=== PATIENT | female | born 1960 | race Caucasian/White ===

== ENCOUNTER 2018-05-28 20:52 | Inpatient (IN) | payer OTHER, MEDICARE ==
[~2018-05-28] VITALS: Ht 160 cm; Wt 132.0 kg
[~2018-05-28 20:52] MED LIST: ADVAIR 250-501 EACH; ASPIRIN81 M2 PO; BACTROBAN22 GM TP; BP MED PO; CARAFATE 1 GM TA1 G1 PO; DOXYCYCLINE 10100 M1 PO; DOXYCYCLINE 10100 MG PO; DUONEB 2.5-0.5 M3 ML INH; ELIQUIS5 MG PO; FLECAINIDE ACET50 M2 PO; HIBICLENS120 ML TP; LEVAQUIN 750 M750 MG; NORCO 7.5-3251 EACH; OMEPRAZOLE 20 M20 MG PO; PREDNISONE 10 M10 MG PO; PREDNISONE 20 M20 M1 PO; PROAIR HFA8.5 GM; TOPROL XL25 MG PO; ZOLOFT100 MG PO; ZPAK PO
[2018-05-28 20:57] VITALS: BP 126/37
[2018-05-28] MEDS ORDERED: XARELTO20 MG PO (21:17)
[2018-05-28] MEDS ORDERED: FOSAMAX 70 MG T70 MG PO (21:19)
[2018-05-28] MEDS ORDERED: IRON325 PO (21:20)
[2018-05-28] MEDS ORDERED: ALDACTONE50 MG PO (21:20)
[2018-05-28] MEDS ORDERED: POTASSIUM20 PO (21:20)
[2018-05-28] MEDS ORDERED: LIPITOR 20 MG T20 M1 PO (21:20)
[2018-05-28] MEDS ORDERED: INCRUSE ELLI62.5 MCG INH (21:21)
[2018-05-28] MEDS ORDERED: TRAMADOL 50 MG50 MG PO (21:21)
[2018-05-28] MEDS ORDERED: XOPENEX HFA15 GM INH (21:22)
[2018-05-28] MEDS ORDERED: VITAMIN D250000 UNIT PO (21:22)
[2018-05-28] MEDS ORDERED: ZEMAIRA PO (21:23)
[2018-05-28] MEDS ORDERED: ZANTAC 150MG T150 MG PO (21:23)
[2018-05-28 21:36] LABS: HEMATOCRIT 27.9 % (37.0-47.0); HEMOGLOBIN 9.4 gm/dL (12.0-15.0); MCH 28.7 pg (26.0-34.0); MCHC 33.7 g/dL (28.0-37.0); MCV 85.2 fL (80.0-100.0); MPV 7.4 fl. (7.2-11.1); NUCLEATED RBCS 0 /100WBC; RBC 3.28 mil/uL (4.20-5.00); RDW-CV 16.8 % (10.5-14.5); WBC 4.9 thou/uL (4.0-11.0)
[2018-05-28 21:43] LABS: ANION GAP 3 mmol/L (7-16); BUN 12 mg/dL (7-18); CALCIUM 8.1 mg/dL (8.5-10.1); CHLORIDE 100 mmol/L (98-107); CO2 32 mmol/L (21-32); CREATININE 0.7 mg/dL (0.6-1.3); GLUCOSE 149 mg/dL (70-99); INR 1.4; POTASSIUM 3.6 mmol/L (3.5-5.1); PROTIME 13.3 Seconds (9.20-11.50); SODIUM 135 mmol/L (136-145)
[2018-05-28 21:54] LABS: ALBUMIN 2.4 g/dL (3.4-5.0); ALKALINE PHOSPHATASE 85 U/L (46-116); LIPASE 119 U/L (73-393); NT-PRO BRAIN NAT PEPTIDE 347 pg/mL (<300); SGOT 35 U/L (15-37); SGPT 29 U/L (30-65); TOTAL BILIRUBIN 1.4 mg/dL (<0.1-1.0); TOTAL PROTEIN 6.5 g/dL (6.4-8.2); TROPONIN-I LEVEL <0.06 ng/mL (<0.06)
[2018-05-28 21:58] LABS: ABSOLUTE LYMPHOCYTES 0.4 thou/uL (0.8-5.3); ABSOLUTE MONOCYTES 0.3 thou/uL (0.0-1.2); ABSOLUTE NEUTROPHILS 4.1 thou/uL (1.6-8.1); PLATELET ESTIMATE ADEQUATE
[2018-05-28 22:00] LABS: PLATELET COUNT* 83 thou/uL (150-400)
[2018-05-29] VITALS (7 sets, daily range): BP systolic 104–142; BP diastolic 41–70
[2018-05-30] VITALS: BP 131/52
[2018-05-30 04:00] VITALS: BP 131/45
[2018-05-30 05:43] LABS: HEMATOCRIT 27.6 % (37.0-47.0); HEMOGLOBIN 9.3 gm/dL (12.0-15.0); MCH 28.8 pg (26.0-34.0); MCHC 33.7 g/dL (28.0-37.0); MCV 85.6 fL (80.0-100.0); MPV 8.1 fl. (7.2-11.1); RBC 3.23 mil/uL (4.20-5.00); WBC 2.4 thou/uL (4.0-11.0)
[2018-05-30 06:03] LABS: CALCIUM 8.1 mg/dL (8.5-10.1); CREATININE 0.7 mg/dL (0.6-1.3); POTASSIUM 4.1 mmol/L (3.5-5.1)
[2018-05-30 08:15] VITALS: BP 120/45
--- NOTE | 2018-05-30 09:06 | CON ---
[address] [address] CONSULTATION Name: JEET ADAMS Room: [address] IN M.R.#: [id number] Admission: 05/28/18 Attend Phys: Sunil Villatoro MD Discharge: Date of : 58 Report #: [id number] THIS REPORT FOR: //name// CC: Sunil Cap[facility]opaladin [facility] DATE OF SERVICE: 05/29/2018 REFERRING PHYSICIAN: Liang Resendiz MD CHIEF COMPLAINT: Fever, dyspnea. HISTORY OF PRESENT ILLNESS: The patient is a 57-year-old female with history of chronic obstructive airways disease. Severity undetermined. The patient's is present and offers information regarding her history. In addition to the above, she had been experiencing a fever at home up to 101 degrees. Because of generally not feeling well, the elevated temperature and having increasing shortness of breath, they came to the Emergency Room. According to the patient, she has had shortness of breath that has been going on for approximately 7 years or so. She had been diagnosed with chronic obstructive airways disease. She had only been on oxygen therapy for several months. Additional history is that patient was diagnosed with alpha-1 antitrypsin deficiency in the fall of 2016. She presented with abdominal issues at [facility]. Diagnosis was made by obtaining an alpha-1 antitrypsin level. The patient has been undergoing infusion since replacement therapy for the alpha-1 since around 12/2017. The delay from the time of diagnosis to infusion therapy was an insurance issue. She has not had any chills. Her shortness of breath has been progressive. She is on chronic oxygen therapy. In addition, she had been hospitalized in March at [facility] for a sepsis syndrome. She was diagnosed with strep C bacteremia. She was treated with antibiotic therapy, discharged with infusion antibiotic therapy for an additional 10-12 days. Her shortness of breath has never really recovered from that standpoint. 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 PAST MEDICAL HISTORY: Significant for history of pneumonia; alpha-1 antitrypsin deficiency, liver or hepatic cirrhosis. She is a nondrinker. She also has a history of chronic lymphedema, first noticeable at about the age of 12 or 13 years old. She is on compression therapy and [place] [id number] CONSULTATION Name: JEET ADAMS Room: [address] IN [facility]#: [id number] Admission: 05/28/18 Attend Phys: Sunil Villatoro MD Discharge: Date of : 58 Report #: [id number] attends lymphedema clinic. Additional past medial medical history is that of atrial fibrillation. ALLERGIES: PENICILLIN, LATEX, LEVAQUIN, ASPIRIN. MEDICATION: She takes infusion therapy. She is on Xarelto. 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 She is on Fosamax, Lipitor, iron supplement, spironolactone, tramadol p.r.n., Xopenex. She is intolerant to the albuterol. She is on a vitamin supplement, ranitidine and Zemaira as her alpha-1 replacement therapy. REVIEW OF SYSTEMS: System review negative other than what is outlined above. FAMILY HISTORY: Positive for hereditary clotting factor deficiency and her brother also has alpha-1 antitrypsin deficiency. PHYSICAL EXAMINATION: VITAL SIGNS: Blood pressure 137/42, respiratory rate 22, pulse rate 88 and regular, temperature 97.8 degrees. Her weight is 294 pounds. GENERAL APPEARANCE: Awake, alert, oriented, no respiratory distress, on oxygen therapy. HEENT: Head atraumatic. EYES: Pupils are round and equal, reactive. Sclerae and conjunctivae are clear. Oral cavity moist. NECK: No adenopathy. CHEST: Diminished breath sounds. CARDIOVASCULAR: Appears regular rhythm without murmurs or rubs. ABDOMEN: Obese without organomegaly. EXTREMITIES: Marked lymphedema bilaterally. SKIN: Warm and dry, no rash effect. LYMPHATICS: Negative. Pulses equal bilaterally. NEUROLOGIC: Moves all 4 extremities. MEDICAL IMAGING STUDIES: Chest x-ray performed did not reveal any acute cardiopulmonary findings. LABORATORY DATA: Sodium 135, potassium 3.6, chloride 100, CO2 of 32, BUN of 12, creatinine 0.7. ProBNP 347. Hemoglobin and hematocrit of 9 and 28 with a white count of 4900; platelet count 83,000. ASSESSMENT: 1. Chronic obstructive airways disease. She is oxygen dependent. 2. Fever, undetermined etiology. She is being evaluated, has been placed on antibiotic coverage. 3. Alpha-1 antitrypsin deficiency. [address] [address] CONSULTATION Name: JEET ADAMS Room: [address] IN M.R.#: [id number] Admission: 05/28/18 Attend Phys: Sunil Villatoro MD Discharge: Date of : 58 Report #: [id number] 4. Clotting factor abnormalities, she is unaware of the type. 5. Chronic atrial fibrillation. 6. Lymphedema of a chronic nature. 7. Obesity. RECOMMENDATION: The patient will be switched to Xopenex and Atrovent on a q.8 hour basis. She uses the Xopenex at home. She is intolerant of the albuterol. Otherwise, no change in her medications. The patient would probably benefit from being evaluated from a cardiovascular standpoint with echocardiogram, although this may have already been performed in another facility. At this point, I am not sure that is necessary to obtain during this hospitalization. Cultures have already been obtained. She does not appear to have a respiratory related illness to account for her fever at least at this time. I will go ahead and repeat an x-ray in the a.m. <ELECTRONICALLY SIGNED> By: Jadiel Markham MD 05/30/18 0906 1149 1312Alcharlotte Markham MD /nt
--- NOTE | 2018-05-30 13:32 | EKG ---
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1960 Requested By: Rajinder Webber Order Number: [id number] MD: Randolph Da Silva Measurements Intervals [place] Rate: 92 P: 18 MN: 133 QRS: 19 QRSD: 106 T: 42 QT: 403 QTc: 499 Interpretive Statements Sinus rhythm Borderline T wave abnormalities Compared to ECG 11/05/2014 15:59:11 T-wave abnormality now present Electronically Signed On 05-30-2018 13:32:28 CDT by Randolph Da Silva [email or web address] <ELECTRONICALLY SIGNED> By: Randolph Da Silva MD, [facility] 05/30/18 1332 2149 2149 Randolph Da Silva MD, [facility] /EPI
--- NOTE | 2018-05-30 13:35 | EKG ---
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1960 Requested By: Liang Resendiz Order Number: [id number] MD: Randolph Da Silva Measurements Intervals [place] Rate: 87 P: 71 VA: 232 QRS: 18 QRSD: 103 T: 20 QT: 410 QTc: 494 Interpretive Statements Sinus rhythm Prolonged VA interval Borderline prolonged QT interval Baseline wander in lead(s) II,III,aVF Compared to ECG 11/05/2014 15:59:11 First degree AV block now present Electronically Signed On 05-30-2018 13:35:12 CDT by Randolph Da Silva [email or web address] <ELECTRONICALLY SIGNED> By: Randolph Da Silva MD, FACC 05/30/18 1335 1138 1138 Randolph Da Silva MD, [facility] /EPI
--- NOTE | 2018-05-30 13:42 | EKG ---
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1960 Requested By: Liang Resendiz Order Number: [id number] MD: Randolph Da Silva Measurements Intervals [place] Rate: 82 P: 69 ID: 216 QRS: 15 QRSD: 111 T: 34 QT: 409 QTc: 478 Interpretive Statements Sinus rhythm Ventricular premature complex Prolonged ID interval Compared to ECG 11/05/2014 15:59:11 Ventricular premature complex(es) now present First degree AV block now present Electronically Signed On 05-30-2018 13:42:02 CDT by Randolph Da Silva [email or web address] <ELECTRONICALLY SIGNED> By: Randolph Da Silva MD, FACC 05/30/18 1342 0919 0919 Randolph Da Silva MD, FAC /EPI
[2018-05-30 15:52] VITALS: BP 135/70
[2018-05-30 19:25] VITALS: BP 134/56
[2018-05-31] VITALS: BP 147/66
[2018-05-31 08:00] VITALS: BP 105/69
[2018-05-31] MEDS ORDERED: PREDNISONE 10 M10 M1 PO (08:27)
[2018-05-31] MEDS ORDERED: MUCINEX600 MG PO (08:27)
[2018-05-31] MEDS ORDERED: AZITHROMYCIN500 MG PO (08:27)
[2018-05-31] MEDS ORDERED: CEFDINIR300 MG PO (08:27)
[2018-05-31 09:45] VITALS: BP 105/69
== END 2018-05-31 11:35 | disposition home or self-care (01) | DRG 871 ==
LOC: M.ERS 20:52 → M.TBA-ER 21:57 → M.2W 21:57
PROVIDERS: Family Medicine; Internal Medicine; ADMIT Internal Medicine
DX: A41.9 Sepsis, unspecified organism (principal); J18.0 Bronchopneumonia, unspecified organism; J44.1 Chronic obstructive pulmonary disease with (acute) exacerbation; J44.0 Chronic obstructive pulmonary disease with (acute) lower respiratory infection; D68.59 Other primary thrombophilia; J96.11 Chronic respiratory failure with hypoxia; Z68.43 Body mass index [BMI] 50.0-59.9, adult; F41.9 Anxiety disorder, unspecified; K21.9 Gastro-esophageal reflux disease without esophagitis; E88.01 Alpha-1-antitrypsin deficiency; I89.0 Lymphedema, not elsewhere classified; I48.2 Chronic atrial fibrillation; E66.9 Obesity, unspecified; K74.60 Unspecified cirrhosis of liver; I10 Essential (primary) hypertension; Z79.2 Long term (current) use of antibiotics; Z79.899 Other long term (current) drug therapy; Z88.0 Allergy status to penicillin; Z88.6 Allergy status to analgesic agent; Z88.1 Allergy status to other antibiotic agents; Z91.040 Latex allergy status; Z90.49 Acquired absence of other specified parts of digestive tract; Z79.01 Long term (current) use of anticoagulants; Z87.891 Personal history of nicotine dependence; Z99.81 Dependence on supplemental oxygen; Z83.2 Family history of diseases of the blood and blood-forming organs and certain disorders involving the immune mechanism

== ENCOUNTER → 2018-08-03 | Outpatient (CLI) | payer OTHER, MEDICARE ==
[~2018-08-03] MED LIST changes: +ALDACTONE50 MG PO; +AZITHROMYCIN500 MG PO; +CEFDINIR300 MG PO; +FOSAMAX 70 MG T70 MG PO; +INCRUSE ELLI62.5 MCG INH; +IRON325 PO; +LIPITOR 20 MG T20 M1 PO; +MUCINEX600 MG PO; +POTASSIUM20 PO; +PREDNISONE 10 M10 M1 PO; +TRAMADOL 50 MG50 MG PO; +VITAMIN D250000 UNIT PO; +XARELTO20 MG PO; +XOPENEX HFA15 GM INH; +ZANTAC 150MG T150 MG PO; +ZEMAIRA PO
--- NOTE | 2018-09-14 14:51 | PATH ---
[address] [address] PATHOLOGY RPT PROCEDURE Name: JOSE DAVIDMICHAELJEET MARIA FERNANDA Room: [facility] AmandaLarissa#: [id number] Admission: 08/03/18 Date of : 58 Discharge: Report #: [id number] Path Case #: [id number] Note [facility] Accession Number: [id number] TESTS RESULT FLAG UNITS REF RANGE LAB Source: 01 R THYROID DIAGNOSIS: 02 R THYROID INCONCLUSIVE. BETHESDA CATEGORY III. ATYPIA OF UNDETERMINED SIGNIFICANCE. SEE COMMENT THIS INTERPRETATION INCLUDES EVALUATION OF A CELL BLOCK. COMMENT: Present in the cell block portion of this specimen is a single group of atypical cells in a structure resembling a papillary group. These cells have increased nuclear size, increased nuclear to cytoplastmic ratio, and prominent nucleoli. 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 Aside from this single atypical group, the remainder of the submitted specimen is consistent with a goiter in appearance. Clinical correlation and follow up is recommended. Dr. Hernandez co-review. Pathologist ICD10: 02 R89.6 Signed out by: 02 Randolph Villegas MD, Pathologist NPI- [id number] Performed by: David Hernandez, Technical Buyer (ASC) Gross description: 01 14ML, PINK, CLEAR /LCS FLAG LEGEND: L-Low Normal,H-High Normal,LL-Alert Low,HH-Alert High <-Panic Low,>-Panic High,A-Abnormal,AA-Critical Abnormal Performed at: 01 [facility] [address] [facility] [address] [place] [address] Clay Crump MD, [address] [place] [address] [address] [place] [address] Marko Muñiz MD, Specimen Comment: Report sent to Specimen Comment: A duplicate report has been generated due to demographic [facility] [address] [place] [address] PATHOLOGY RPT PROCEDURE Name: ANGIEJEET MARIA FERNANDA Room: ODILIA Aguilar#: [id number] Admission: 08/03/18 Date of : 58 Discharge: Report #: [id number] Path Case #: [id number] updates. Performed at: 01 [facility] [place] [address] [facility] [address], [place], [place] [id number] MD Clay Crump MD Phone: [phone]
== END ==
LOC: M.ULTRA 08:07
DX: E04.1 Nontoxic single thyroid nodule (principal); B17.8 Other specified acute viral hepatitis; E11.9 Type 2 diabetes mellitus without complications; J44.1 Chronic obstructive pulmonary disease with (acute) exacerbation; I48.91 Unspecified atrial fibrillation; Z79.4 Long term (current) use of insulin; K74.69 Other cirrhosis of liver; Z90.49 Acquired absence of other specified parts of digestive tract; Z98.890 Other specified postprocedural states; Z79.82 Long term (current) use of aspirin; Z82.49 Family history of ischemic heart disease and other diseases of the circulatory system; Z83.3 Family history of diabetes mellitus; Z79.899 Other long term (current) drug therapy; Z87.891 Personal history of nicotine dependence; Z88.8 Allergy status to other drugs, medicaments and biological substances; Z88.0 Allergy status to penicillin; Z91.040 Latex allergy status; Z80.3 Family history of malignant neoplasm of breast

== ENCOUNTER 2018-10-25 19:54 | Emergency (ER) | payer OTHER, MEDICARE ==
[~2018-10-25] VITALS: Ht 162.6 cm; Wt 124.7 kg
[~2018-10-25 19:54] MED LIST changes: +ZEMAIRA IV; -ZEMAIRA PO
[2018-10-25] MEDS ORDERED: OXYCODONE HCL 55 MG PO (21:48)
[2018-10-25 22:10] VITALS: BP 143/53
== END 2018-10-25 22:10 | disposition home or self-care (01) ==
LOC: M.ERS 19:54
DX: M25.561 Pain in right knee (principal); I10 Essential (primary) hypertension; F41.9 Anxiety disorder, unspecified; I48.91 Unspecified atrial fibrillation; J44.9 Chronic obstructive pulmonary disease, unspecified; K21.9 Gastro-esophageal reflux disease without esophagitis; K74.60 Unspecified cirrhosis of liver; Z88.0 Allergy status to penicillin; Z91.040 Latex allergy status; Z88.6 Allergy status to analgesic agent; Z88.1 Allergy status to other antibiotic agents; Z88.7 Allergy status to serum and vaccine; Z88.8 Allergy status to other drugs, medicaments and biological substances; Z90.49 Acquired absence of other specified parts of digestive tract